=== PATIENT | female | born 1985 | race Two or more races ===

== ENCOUNTER 2020-06-15 21:47 | Emergency (ER) | payer SELFPAY ==
--- NOTE | 2020-06-15 23:24 | ER Document Report ---
ED Medical Screen (RME) - General Chief Complaint: Vaginal Discharge Stated Complaint: VAGINAL DISCHARGE/PELVIC PAIN/EAR BUZZING Time Seen by Provider: 06/15/20 23:13 Mode of Arrival: Ambulatory Information source: Patient Notes: HPI; 34-year-old female presents to the emergency room complaining of bilateral ear pain for the past 2 weeks. Denies any trauma or injury. No fevers. Also complaining of lower pelvic pain that she describes as crampy for the past 2 months with vaginal discharge that started 2 weeks ago. States she was seen by the [facility] a month ago was given her some medications but her symptoms have not resolved. She denies any change in sexual partners. She denies . PE: Alert and oriented x3. Lungs: Clear to auscultation without rales, rhonchi, wheezes. Heart: Regular rate rhythm without murmurs, rubs, gallops. I have greeted and performed a rapid initial assessment of this patient. A comprehensive ED assessment and evaluation of the patient, analysis of test results and completion of the medical decision making process will be conducted by additional ED providers. I have specifically instructed the patient or family members with the patient to immediately return to any nursing staff should anything change in the patient's condition or with their chief complaint. TRAVEL OUTSIDE OF THE [place] IN LAST 30 DAYS: No Physical Exam - Vital signs Vitals: Temp Pulse Resp BP Pulse Ox 98.6 F 68 16 110/72 100 06/15/20 21:57 06/15/20 21:57 06/15/20 21:57 06/15/20 21:57 06/15/20 21:57 Course - Vital Signs Vital signs: Temp Pulse Resp BP Pulse Ox 98.6 F 68 16 110/72 100 06/15/20 21:57 06/15/20 21:57 06/15/20 21:57 06/15/20 21:57 06/15/20 21:57
[2020-06-16 00:09] LABS: ABSOLUTE EOSINOPHILS # (AUTO) 0.2 10^3/uL (0.0-0.6); ABSOLUTE LYMPHOCYTES (AUTO) 1.7 10^3/uL (0.5-4.7); ABSOLUTE MONOCYTES (AUTO) 0.5 10^3/uL (0.1-1.4); ABSOLUTE NEUT (AUTO) 5.1 10^3/uL (1.7-8.2); BASOPHILS % (AUTO) 0.3 % (0-2); EOSINOPHILS % (AUTO) 2.8 % (0-6); HEMATOCRIT 37.4 % (36.0-47.0); HEMOGLOBIN 12.9 g/dL (12.0-15.5); LYMPHOCYTES % (AUTO) 23.1 % (13-45); MEAN CORPUSCULAR HEMOGLOBIN 30.3 pg (27.0-33.4); MEAN CORPUSCULAR HGB CONC 34.4 g/dL (32.0-36.0); MEAN CORPUSCULAR VOLUME 88 fl (80-97); MONOCYTES % (AUTO) 6.7 % (3-13); PLATELET COUNT 137 10^3/uL (150-450); RED BLOOD COUNT 4.24 10^6/uL (3.72-5.28); RED CELL DISTRIBUTION WIDTH 13.3 % (11.5-14.0); SEGMENTED NEUTROPHILS % (AUTO) 67.1 % (42-78); TOTAL CELLS COUNTED % (AUTO) 100 %; WHITE BLOOD COUNT 7.5 10^3/uL (4.0-10.5)
[2020-06-16 00:19] LABS: BLOOD UREA NITROGEN 11 mg/dL (7-20); CALCIUM 9.8 mg/dL (8.4-10.2); GLUCOSE 109 mg/dL (75-110)
[2020-06-16 00:20] LABS: ALBUMIN 4.8 g/dL (3.5-5.0); ALKALINE PHOSPHATASE 76 U/L (38-126); ANION GAP 9 (5-19); ASPARTATE AMINO TRANSFERASE 53 U/L (14-36); BILIRUBIN,TOTAL 0.3 mg/dL (0.2-1.3); CARBON DIOXIDE 28 mmol/L (22-30); CHLORIDE 101 mmol/L (98-107); POTASSIUM 3.9 mmol/L (3.6-5.0); TOTAL PROTEIN 7.7 g/dL (6.3-8.2)
--- NOTE | 2020-06-16 00:20 | RADIOLOGY REPORT (SQ) ---
EXAM DESCRIPTION: US PELVIS TRANSVAGINAL COMPLETED DATE/TME: 06/16/2020 00:03 EXAM DESCRIPTION: U/S NON OB PEL TV W/DOPPLER CLINICAL HISTORY: 34 years Female, pelvic pain COMPARISON: None. TECHNIQUE: Complete pelvic ultrasound obtained with transvaginal imaging. FINDINGS: Uterus: The uterus measures 8.2 x 3.7 x 4.7 cm. No myometrial abnormality. Endometrium: Endometrial thickness of 0.6 cm. Right ovary: The right ovary measures 3.6 x 1.7 x 1.7 cm. Multiple right ovarian cysts, the largest measuring 2.8 cm. Left ovary: The left ovary measures 2.6 x 1.8 x 1.8 cm. Adnexa: No large adnexal masses. Free fluid: Small amount of free fluid. Duplex imaging: Color and spectral Doppler imaging demonstrates blood flow to the ovaries bilaterally. IMPRESSION: 1. Trace free pelvic fluid. This may be physiologic. 2. Multiple right ovarian cysts, the largest measuring 2.8 cm. No follow-up imaging recommended.
[2020-06-16 00:49] LABS: APPEARANCE,URINE CLOUDY; BILIRUBIN,URINE NEGATIVE (NEGATIVE); COLOR,URINE YELLOW; GLUCOSE, URINE NEGATIVE (NEGATIVE); KETONES,URINE NEGATIVE (NEGATIVE); LEUKOCYTE ESTERASE,URINE LARGE (NEGATIVE); NITRITE,URINE NEGATIVE (NEGATIVE); PROTEIN,URINE NEGATIVE (NEGATIVE); URINE SPECIFIC GRAVITY 1.005; UROBILINOGEN,URINE NEGATIVE mg/dL (<2.0)
[2020-06-16 06:08] VITALS: BP 100/66
[2020-06-16] MEDS ORDERED: LIDOCAINE 1% INJ-PF (10 MG/ML) 30 ML SDV INJ ONE (08:51)
[2020-06-16] MEDS ORDERED: AZITHROMYCIN 250 MG TABLET PO ONE (08:51)
[2020-06-16] MEDS ORDERED: CEFTRIAXONE INJ 1000 MG VIAL IM ONE (08:51)
[2020-06-16] MEDS ORDERED: PHENAZOPYRIDINE HCL 200 MG TABLET PO ONE (08:52)
--- NOTE | 2020-06-16 08:54 | ER Document Report ---
ED GI/ - General Chief Complaint: Vaginal Discharge Stated Complaint: VAGINAL DISCHARGE/PELVIC PAIN/EAR BUZZING Time Seen by Provider: 06/16/20 08:45 Primary Care Provider: [facility] [Provider Group] - Follow up as needed Mode of Arrival: Ambulatory Information source: Patient Notes: Patient presents complaining of buzzing in the ears for the past 2 weeks. Patient reports pelvic pain for the past 2 months with vaginal discharge for the past 2 weeks. Patient does complain of some dysuria symptoms as well. Patient denies any fever, nausea or vomiting. TRAVEL OUTSIDE OF THE [place] IN LAST 30 DAYS: No - HPI Patient complains to provider of: Abdominal pain. No: Vomiting Onset: Other - 2 mo Timing/Duration: Persistent Quality of pain: Cramping Pain Level: 1 Location: Pelvis Vaginal bleeding (Compared to normal period): None Sexual history: Active Associated symptoms: Dysuria, Vaginal discharge. denies: Fever, Nausea, Urinary hesitancy, Urinary frequency, Urinary retention, Urinary urgency, Vomiting Exacerbated by: Denies Relieved by: Denies Similar symptoms previously: No Recently seen / treated by doctor: No - Related Data Allergies/Adverse Reactions: No Known Allergies Allergy (Unverified 06/16/20 09:57) Past Medical History - General Information source: Patient - Social History Smoking Status: Never Smoker Frequency of alcohol use: None Drug Abuse: None Occupation: Foodservice Family History: Reviewed & Not Pertinent - Medical History Medical History: Negative Surgical Hx: Negative Review of Systems - Review of Systems Constitutional: No symptoms reported. denies: Fever, Recent illness EENT: No symptoms reported Cardiovascular: No symptoms reported Respiratory: No symptoms reported Gastrointestinal: Abdominal pain. denies: Diarrhea, Nausea, Vomiting Genitourinary: Dysuria. denies: Flank pain Female Genitourinary: Vaginal discharge. denies: , Vaginal bleeding Musculoskeletal: No symptoms reported. denies: Back pain Skin: No symptoms reported Hematologic/Lymphatic: No symptoms reported Physical Exam - Vital signs Vitals: Temp Pulse Resp BP Pulse Ox 98.6 F 68 16 110/72 100 06/15/20 21:57 06/15/20 21:57 06/15/20 21:57 06/15/20 21:57 06/15/20 21:57 - Notes Notes: PHYSICAL EXAMINATION: GENERAL: Well-appearing and in no acute distress. HEAD: Atraumatic, normocephalic. EYES: sclera anicteric, conjunctiva are normal. ENT: nares patent. Moist mucous membranes. NECK: Normal range of motion, supple without lymphadenopathy LUNGS: CTAB and equal. No wheezes rales or rhonchi. HEART: Regular rate and rhythm without murmurs ABDOMEN: Soft, suprapubic tenderness, normal bowel sounds, no guarding. EXTREMITIES: Normal range of motion, no pitting edema. No cyanosis. BACK: No midline tenderness, no step-off or deformity. No CVA tenderness NEUROLOGICAL: Cranial nerves grossly intact. Normal speech. PSYCH: Normal mood, normal affect. SKIN: Warm, Dry, normal turgor, no rashes or lesions noted - HEENT Ears: Normal External canal: Normal Tympanic membrane: Normal. No: Purulent effusion, Retracted, Serous effusion Hearing loss: No: Left, Right Nasal: Normal - Genitourinary External exam: Normal Speculum exam: Vaginal discharge Vaginal bleeding: None Bimanuel exam: Adnexal tenderness - right Notes: [facility] as standby Course - Re-evaluation Re-evalutation: 06/16/20 09:48 Patient with UTI and vaginal discharge worrisome for BV. Cultures are pending and patient has been treated empirically. Patient nontoxic in appearance, no concern for pyelonephritis or obstructive uropathy. - Vital Signs Vital signs: Temp Pulse Resp BP Pulse Ox 97.9 F 67 14 100/66 100 06/16/20 10:18 06/16/20 06:07 06/16/20 06:07 06/16/20 06:07 06/16/20 06:07 - Laboratory Result Diagrams: 06/15/20 23:33 06/15/20 23:33 Laboratory results interpreted by me: 06/15/20 06/15/20 06/15/20 23:33 23:33 23:33 Plt Count 137 L AST 53 H ALT 66 H Urine Blood MODERATE H Ur Leukocyte Esterase LARGE H 06/16/20 09:48 Labs- All tests 24 hr 06/15/20 06/15/20 06/15/20 23:33 23:33 23:33 WBC 7.5 RBC 4.24 Hgb 12.9 Hct 37.4 MCV 88 MCH 30.3 MCHC 34.4 RDW 13.3 Plt Count 137 L Lymph % (Auto) 23.1 [place] % (Auto) 6.7 Eos % (Auto) 2.8 Baso % (Auto) 0.3 Absolute Neuts (auto) 5.1 Absolute Lymphs (auto) 1.7 Absolute Monos (auto) 0.5 Absolute Eos (auto) 0.2 Absolute Basos (auto) 0.0 Seg Neutrophils % 67.1 Sodium 137.7 Potassium 3.9 Chloride 101 Carbon Dioxide 28 Anion Gap 9 BUN 11 Creatinine 0.74 Est GFR ( Amer) > 60 Est GFR (MDRD) Non-Af > 60 Glucose 109 Calcium 9.8 Total Bilirubin 0.3 Direct Bilirubin 0.0 Neonat Total Bilirubin Not Reportable Neonat Direct Bilirubin Not Reportable Neonat Indirect Bili Not Reportable AST 53 H ALT 66 H Alkaline Phosphatase 76 Total Protein 7.7 Albumin 4.8 Serum HCG, Qual NEGATIVE Urine Color Urine Appearance Urine pH Ur Specific [place] Urine Protein Urine Glucose (UA) Urine Ketones Urine Blood Urine Nitrite Urine Bilirubin Urine Urobilinogen Ur Leukocyte Esterase Urine WBC (Auto) Urine RBC (Auto) Urine Bacteria (Auto) Squamous Epi Cells Auto Urine Mucus (Auto) Urine Ascorbic Acid Epi Cells (Wet Prep) Bacteria (Wet Prep) Trichomonas (Wet Prep) Vaginal WBC Vaginal RBC Vaginal Yeast 06/15/20 06/16/20 23:33 09:00 WBC RBC Hgb Hct MCV MCH MCHC RDW Plt Count Lymph % (Auto) [place] % (Auto) Eos % (Auto) Baso % (Auto) Absolute Neuts (auto) Absolute Lymphs (auto) Absolute Monos (auto) Absolute Eos (auto) Absolute Basos (auto) Seg Neutrophils % Sodium Potassium Chloride Carbon Dioxide Anion Gap BUN Creatinine Est GFR ( Amer) Est GFR (MDRD) Non-Af Glucose Calcium Total Bilirubin Direct Bilirubin Neonat Total Bilirubin Neonat Direct Bilirubin Neonat Indirect Bili AST ALT Alkaline Phosphatase Total Protein Albumin Serum HCG, Qual Urine Color YELLOW Urine Appearance CLOUDY Urine pH 6.0 Ur Specific [place] 1.005 Urine Protein NEGATIVE Urine Glucose (UA) NEGATIVE Urine Ketones NEGATIVE Urine Blood MODERATE H Urine Nitrite NEGATIVE Urine Bilirubin NEGATIVE Urine Urobilinogen NEGATIVE Ur Leukocyte Esterase LARGE H Urine WBC (Auto) 95 Urine RBC (Auto) 9 Urine Bacteria (Auto) 1+ Squamous Epi Cells Auto 2 Urine Mucus (Auto) RARE Urine Ascorbic Acid NEGATIVE Epi Cells (Wet Prep) 3+ EPITHELIALS SEEN Bacteria (Wet Prep) 4+ BACTERIA SEEN Trichomonas (Wet Prep) NO TRICHOMONAS SEEN Vaginal WBC 1+ WBCS SEEN Vaginal RBC FEW RBCS SEEN Vaginal Yeast NO YEAST SEEN - Diagnostic Test Radiology reviewed: Reports reviewed Discharge - Discharge Clinical Impression: Bacterial vaginosis UTI (urinary tract infection) Qualifiers: Urinary tract infection type: site unspecified Hematuria presence: with hematuria Qualified Code(s): N39.0 - Urinary tract infection, site not specified Condition: Stable Disposition: HOME, SELF-CARE Instructions: Cephalexin ([facility]), Metronidazole ([facility]), Urinary Anesthetic Agent ([facility]), Urinary Tract Infection ([facility]), Vaginosis, Bacterial ([facility]) Additional Instructions: Return immediately for any new or worsening symptoms Followup with your primary care provider, call tomorrow to make a followup appointment Cultures are pending, we will call if you need any different treatment Prescriptions: Metronidazole [Flagyl 500 mg Tablet] 500 mg PO BID #14 tablet Cephalexin Monohydrate [Keflex 500 mg Capsule] 500 mg PO BID 5 Days #10 capsule Phenazopyridine HCl [Pyridium 200 mg Tablet] 200 mg PO TID #15 tablet Forms: Return to Work Referrals: [facility] [Provider Group] - Follow up as needed
[2020-06-16 09:16] LABS: BACTERIA (WET MOUNT) 4+ BACTERIA SEEN; EPITHELIALS (WET MOUNT) 3+ EPITHELIALS SEEN; RBCS (WET MOUNT) FEW RBCS SEEN; T.VAGINALIS (WET MOUNT) NO TRICHOMONAS SEEN; WBCS (WET MOUNT) 1+ WBCS SEEN; YEAST (WET MOUNT) NO YEAST SEEN
[2020-06-16 10:47] LABS: CHLAM PCR NOT DETECTED (NOT DETECT)
== END 2020-06-16 10:18 | disposition home or self-care (01) ==
LOC: ER 21:47
DX: N76.0 Acute vaginitis (principal); B96.89 Other specified bacterial agents as the cause of diseases classified elsewhere; N39.0 Urinary tract infection, site not specified; R30.0 Dysuria; R10.2 Pelvic and perineal pain; R10.9 Unspecified abdominal pain
CPT/HCPCS: 99285; 96372; 36415; 87086; 87210; 84703; 85025; 80053; 81001; 87491; 87591; 76830; 93976; J3490 ×2; J0696